=== PATIENT | female | born 1950 | race Caucasian/White ===

== ENCOUNTER 2017-06-27 10:35 | Outpatient (CLI) | payer MEDICARE ==
--- NOTE | 2017-06-27 12:36 | XRAY Report ---
TWO VIEW CHEST: 06/27/2017 CLINICAL INDICATION: Shortness of breath. FINDINGS: Frontal and lateral views of the chest demonstrate a normal cardiac silhouette. The lungs are clear. Old, healed rib fractures are incidentally noted. IMPRESSION: NO EVIDENCE OF ACUTE CARDIOPULMONARY DISEASE. JOB #: [id number] EXT JOB #:[id number]
== END 2017-06-27 10:36 | disposition home or self-care (01) ==
LOC: DI.S 10:35
PROVIDERS: ATTEND Physician Assistant
DX: R06.02 Shortness of breath (principal)
CPT/HCPCS: 71020

== ENCOUNTER 2018-03-07 10:11 | Outpatient (CLI) | payer MEDICARE ==
--- NOTE | 2018-03-09 11:03 | Mammography Report ---
Procedure Date: 03/07/2018 Accession Number: [id number] / [id number] Procedure: MGS - Screening Mammo Dig Bilat CPT Code: FULL RESULT: EXAM: Screening Mammo Dig Bilat DATE: 03/07/2018 10:30 AM CLINICAL HISTORY: 67-year-old with history of late childbearing for screening TECHNIQUE: Bilateral CC, laterally exaggerated CC, MLO views were obtained. COMPARISON: 03/29/2016, 06/13/2013, 05/09/2012, 03/02/2011 FINDINGS: The breasts demonstrate heterogeneously dense fibroglandular parenchyma bilaterally. Coarse and punctate, typically benign calcifications are present. No suspicious masses, clustered microcalcifications, or regions of architectural distortion are identified. IMPRESSION: Benign findings RECOMMENDATION: Routine annual screening unless otherwise clinically indicated. BIRADS CATEGORY 2: Benign findings STANDARD QUALIFYING STATEMENTS: 1. This examination was reviewed with the aid of Computer-Aided Detection (CAD). 2. A negative or benign imaging report should not delay biopsy if clinically suspicious findings are present. Consider surgical consultation if warrented. More than 5% of cancers are not identified by imaging. 3. Dense breasts may obscure an underlying neoplasm.
== END 2018-03-07 10:12 | disposition home or self-care (01) ==
LOC: DI.S 10:11
PROVIDERS: ATTEND Physician Assistant
DX: Z12.31 Encounter for screening mammogram for malignant neoplasm of breast (principal)
CPT/HCPCS: 77067

== ENCOUNTER 2020-01-25 11:48 | Emergency (ER) | payer MEDICARE ==
[2020-01-25 12:54] LABS: BASOPHILS % (AUTO) 0.7 %; HGB - HEMOGLOBIN 12.6 g/dL (12.0-16.0); LYMPHOCYTES % (AUTO) 4.9 %; MEAN CORPUSCULAR HEMOGLOBIN 31.7 pg (27.0-31.0); MEAN CORPUSCULAR HGB CONC 33.5 g/dL (32.0-36.0); MEAN CORPUSCULAR VOLUME 94.7 fL (81.0-99.0); MEAN PLATELET VOLUME 11.1 fL (7.9-10.8); MONOCYTES % (AUTO) 4.3 %; NEUTROPHILS % (AUTO) 87.7 %; PLT - PLATELET COUNT 120 10^3/uL (130-450); RED BLOOD COUNT 3.97 10^6/uL (4.20-5.40); RED CELL DISTRIBUTION WIDTH 13.8 % (12.0-15.0); WHITE BLOOD COUNT 21.1 x10^3/uL (4.8-10.8)
[2020-01-25 12:57] LABS: ABNORMAL LYMPHS % (MANUAL) 0 %
[2020-01-25 13:00] LABS: ALBUMIN 3.6 g/dL (3.2-5.5); ALBUMIN/GLOBULIN RATIO 1.2 (1.0-2.2); BILIRUBIN,TOTAL 0.7 mg/dL (0.2-1.0); CALCIUM 8.4 mg/dL (8.5-10.3); CREATININE 0.6 mg/dL (0.4-1.0); TOTAL PROTEIN 6.6 g/dL (6.7-8.2)
[2020-01-25 13:00] LABS: BILIRUBIN,URINE NEGATIVE (NEGATIVE); GLUCOSE, URINE (UA) NEGATIVE (NEGATIVE); KETONES,URINE (UA) NEGATIVE (NEGATIVE); LEUKOCYTE ESTERASE, URINE NEGATIVE (NEGATIVE); NITRITE,URINE NEGATIVE (NEGATIVE); OCCULT BLOOD,URINE TRACE-INTA (NEGATIVE); PH,URINE 6.5 PH (5.0-7.5); PROTEIN,URINE NEGATIVE (NEGATIVE); UROBILINOGEN,URINE 0.2 (NORMAL) E.U./dL (NORMAL)
[2020-01-25 13:01] LABS: CLARITY,URINE CLEAR (CLEAR)
[2020-01-25 13:21] LABS: BAND NEUTROPHILS % (MANUAL) 6 %; LYMPHOCYTES # (MANUAL) 1.5 10^3/uL (1.5-3.5); LYMPHOCYTES % (MANUAL) 7 %
[2020-01-25 13:24] LABS: DIFFERENTIAL COMMENT MANUAL DIFFERENTIAL; PLATELET ESTIMATE, MANUAL DECREASED (<130,000) (NORMAL); PLATELET MORPHOLOGY NORMAL APPEARANCE (NORMAL); RBC MORPHOLOGY (MULTIPLE) NORMAL APPEARANCE (NORMAL)
--- NOTE | 2020-01-25 13:58 | ED Physician Documentation ---
PD HPI NVD - Stated complaint Stated Complaint: FEVER,DIARRHEA - Chief complaint Chief Complaint: Fever - History obtained from History obtained from: Patient - History of Present Illness Timing - onset: How many days ago (6) Timing - duration: Days (6) Timing - details: Gradual onset, Still present Associated symptoms: Fever, Loss of appetite, Other (weakness) Contributing factors: Other (recent start of chemo) Improved by: Meds Similar symptoms before: Has not had sx before Recently seen: Other - Additonal information Additional information: 69-year-old female has recently been diagnosed with ER negative HER-2 positive breast cancer and she has been started on neoadjuvant chemotherapy. She has a port in place and she had her first round of chemo on 01/15/2020. At that time she was constipated she did take some MiraLAX and since that time she has had diarrhea multiple times during the day and night and she has a sore rectum. She is now developed a fever up to 101 and this is been variable. She does not have cough or congestion she does not have urinary symptoms. She has been drinking a lot of Gatorade. Review of Systems Constitutional: reports: Fever, Chills, Myalgias Eyes: denies: Decreased vision Ears: denies: Ear pain Nose: denies: Rhinorrhea / runny nose, Congestion Throat: denies: Sore throat Cardiac: denies: Chest pain / pressure, Palpitations Respiratory: denies: Dyspnea, Cough GI: reports: Nausea, Diarrhea. denies: Abdominal Pain, Vomiting : denies: Dysuria, Frequency Skin: denies: Rash Musculoskeletal: denies: Neck pain, Back pain, Extremity pain Neurologic: reports: Generalized weakness. denies: Focal weakness, Numbness PD PAST MEDICAL HISTORY - Past Medical History Past Medical History: Yes - Present Medications Home Medications: Ambulatory Orders Medication Instructions Recorded Confirmed Lidocaine/Prilocain 2.5% Cream 30 gm TOP DAILY PRN 01/08/20 01/08/20 [Emla 2.5% Cream] OLANZapine [Olanzapine] 5 mg PO QPM PRN 01/08/20 01/08/20 Ondansetron HCl [Zofran] 8 mg PO BID PRN 01/08/20 01/08/20 dexAMETHasone [Dexamethasone] 8 mg PO BID PRN 01/08/20 01/08/20 - Allergies Allergies/Adverse Reactions: Allergies Allergy/AdvReac Type Severity Reaction Status Date / Time epinephrine AdvReac Mild Unknown Verified 01/25/20 12:03 - Social History Does the pt smoke?: No Smoking Status: Never smoker Does the pt drink ETOH?: No Does the pt have substance abuse?: No - Immunizations Immunizations are current?: Yes PD ED PE NORMAL - Vitals Vital signs reviewed: Yes (tachy with a wide pulse pressure ) - General General: Alert and oriented X 3, No acute distress, Well developed/nourished - HEENT HEENT: Atraumatic, PERRL, EOMI - Neck Neck: Supple, no meningeal sign - Cardiac Cardiac: Other (Tachycardic rate with a 2 out of 6 holosystolic murmur at the sternal border.) - Respiratory Respiratory: No respiratory distress - Abdomen Abdomen: Soft, Non tender - Back Back: No CVA TTP, No spinal TTP - Derm Derm: Normal color, Warm and dry, No rash - Extremities Extremities: No deformity, No edema - Neuro Neuro: Alert and oriented X 3, analytical technician 2-12 intact, No motor deficit, No sensory deficit, Normal speech Eye Opening: Spontaneous Motor: Obeys Commands Verbal: Oriented GCS Score: 15 - Psych Psych: Normal mood, Normal affect Results - Vitals Vitals: Vital Signs - 24 hr 01/25/20 01/25/20 01/25/20 11:56 12:25 12:33 Temperature 36.9 C 36.9 C Heart Rate 102 H 102 H 100 Respiratory 18 18 16 Rate Blood Pressure 124/54 L 124/54 L 143/64 H O2 Saturation 96 96 97 01/25/20 01/25/20 01/25/20 13:03 13:30 14:00 Temperature Heart Rate 100 102 H 99 Respiratory 16 16 16 Rate Blood Pressure 140/62 H 110/73 121/66 O2 Saturation 98 100 98 01/25/20 14:30 Temperature Heart Rate 98 Respiratory 16 Rate Blood Pressure 120/68 O2 Saturation 100 Oxygen O2 Source Room air - Labs Labs: Laboratory Tests 01/25/20 01/25/20 01/25/20 12:30 12:30 12:30 WBC 21.1 H RBC 3.97 L Hgb 12.6 Hct 37.6 MCV 94.7 MCH 31.7 H MCHC 33.5 RDW 13.8 Plt Count 120 L MPV 11.1 H Neut # (Auto) Not Reportable Lymph # (Auto) Not Reportable Weld # (Auto) Not Reportable Eos # (Auto) Not Reportable Baso # (Auto) Not Reportable Absolute Nucleated RBC Not Reportable Total Counted 100 Band Neuts % (Manual) 6 Abnorm Lymph % (Manual) 0 Nucleated RBC % Not Reportable Neutrophils # (Manual) 19.6 H Lymphocytes # (Manual) 1.5 Monocytes # (Manual) 0.0 Eosinophils # (Manual) 0.0 Basophils # (Manual) 0.0 Differential Comment MANUAL DIFFERENTIAL WBC Morphology NORMAL APPEARANCE Platelet Estimate DECREASED (<130,000) Platelet Morphology NORMAL APPEARANCE RBC Morph Micro Appear NORMAL APPEARANCE Sodium 135 Potassium 3.4 L Chloride 99 L Carbon Dioxide 27 Anion Gap 9.0 BUN 5 L Creatinine 0.6 Estimated GFR (MDRD) 99 Glucose 111 H Lactic Acid 0.7 Calcium 8.4 L Total Bilirubin 0.7 AST 29 ALT 30 Alkaline Phosphatase 91 Total Protein 6.6 L Albumin 3.6 Globulin 3.0 Albumin/Globulin Ratio 1.2 Lipase 21 L Urine Color Urine Clarity Urine pH Ur Specific Chloe Urine Protein Urine Glucose (UA) Urine Ketones Urine Occult Blood Urine Nitrite Urine Bilirubin Urine Urobilinogen Ur Leukocyte Esterase Ur Microscopic Review Urine Culture Comments 01/25/20 12:53 WBC RBC Hgb Hct MCV MCH MCHC RDW Plt Count MPV Neut # (Auto) Lymph # (Auto) Weld # (Auto) Eos # (Auto) Baso # (Auto) Absolute Nucleated RBC Total Counted Band Neuts % (Manual) Abnorm Lymph % (Manual) Nucleated RBC % Neutrophils # (Manual) Lymphocytes # (Manual) Monocytes # (Manual) Eosinophils # (Manual) Basophils # (Manual) Differential Comment WBC Morphology Platelet Estimate Platelet Morphology RBC Morph Micro Appear Sodium Potassium Chloride Carbon Dioxide Anion Gap BUN Creatinine Estimated GFR (MDRD) Glucose Lactic Acid Calcium Total Bilirubin AST ALT Alkaline Phosphatase Total Protein Albumin Globulin Albumin/Globulin Ratio Lipase Urine Color YELLOW Urine Clarity CLEAR Urine pH 6.5 Ur Specific Chloe <=1.005 Urine Protein NEGATIVE Urine Glucose (UA) NEGATIVE Urine Ketones NEGATIVE Urine Occult Blood TRACE-INTA Urine Nitrite NEGATIVE Urine Bilirubin NEGATIVE Urine Urobilinogen 0.2 (NORMAL) Ur Leukocyte Esterase NEGATIVE Ur Microscopic Review NOT INDICATED Urine Culture Comments NOT INDICATED Procedures - IVC sono (time) 1345 Bedside IVC sono: IVC measures (cm) (1.74), IVC collapsed c insp (cm) (1.09), Euvolemia PD MEDICAL DECISION MAKING - ED course Complexity details: reviewed old records, reviewed results, re-evaluated patient, considered differential, d/w patient ED course: Patient 69-year-old female beginning a treatment regimen for breast cancer has developed diarrhea a known side effect of her regimen. The diarrhea is profuse and Dr. Dumont is consulted and the recommendation for treatment of it is Imodium on a regular basis. The patient has not been doing this. I will encourage that. She does have normal volume today. Electrolytes are without abnormality. Departure - Departure Disposition: Home, Self Care Clinical Impression: Diarrhea Qualifiers: Diarrhea type: unspecified type Qualified Code(s): R19.7 - Diarrhea, unspec ified Condition: Stable Instructions: ED Diet Vomiting Diarrhea Follow-Up: Arlene Velasquez PA [Primary Care Provider] - Comments: This diarrhea that you have is a known side effect of your chemotherapy regimen. The measure that has been required to help this is the use of Imodium on a re gular basis. The recommendation is to take 4 mg initially and then 2 mg every 4 hours or after diarrhea. Not to exceed 16 mg/day. (8 pills in one day is the maximum). Discharge Date/Time: 01/25/20 15:20
--- NOTE | 2020-01-25 14:28 | XRAY Report ---
Reason: chest pain Procedure Date: 01/25/2020 Accession Number: [id number] / [id number] Procedure: XR - Chest 1 View X-Ray CPT Code: 93884 Final Report FULL RESULT: EXAM: CHEST RADIOGRAPHY EXAM DATE: 01/25/2020 02:10 PM. CLINICAL HISTORY: Chest pain. Chest pain, fever, vomiting and treatments through Port-A-Cath placed 01/11/2020. COMPARISON: CHEST 2 VIEW PA/LAT 06/27/2017 10:50 AM. TECHNIQUE: 1 view. FINDINGS: Lungs/Pleura: Lungs are without consolidation. Elevation of the right hemidiaphragm. Negative for pleural fluid. Mediastinum: Heart size is normal. Trachea is midline. Other: Right Port-A-Cath with tip at the lower SVC. Remote healed fractures right posterolateral seventh and eighth ribs. IMPRESSION: Negative for pneumonic infiltrate. RADIA
[2020-01-25 14:31] VITALS: BP 120/68
== END 2020-01-25 15:20 | disposition home or self-care (01) ==
LOC: ED 11:48
DX: K52.1 Toxic gastroenteritis and colitis (principal); T45.1X5A Adverse effect of antineoplastic and immunosuppressive drugs, initial encounter; C50.919 Malignant neoplasm of unspecified site of unspecified female breast; Z17.1 Estrogen receptor negative status [ER-]; R00.0 Tachycardia, unspecified; R01.1 Cardiac murmur, unspecified
CPT/HCPCS: 36415; 71045; 80053; 81001; 81003; 83605; 83690; 85025; 87040; 87086; 96374; 99284

== ENCOUNTER 2020-01-28 20:45 | Outpatient (CLI) | payer MEDICARE | END 2020-01-28 20:46 | disposition home or self-care (01) | LOC: COV 20:45 | PROVIDERS: ATTEND Family Medicine | DX: R50.9 Fever, unspecified (principal); R19.7 Diarrhea, unspecified | CPT/HCPCS: 81599 ==

== ENCOUNTER 2020-04-14 08:58 | Emergency (ER) | payer MEDICARE ==
[2020-04-14] MEDS ORDERED: SODIUM CHLORIDE 0.9% 1,000 ML IV STA ×2 (09:04→10:10)
--- NOTE | 2020-04-14 09:10 | ED Physician Documentation ---
PD HPI SYNCOPE - Stated complaint Stated Complaint: SYNCOPE - Chief complaint Chief Complaint: Neuro - History obtained from History obtained from: Patient, EMS - History of Present Illness Witnessed: Witnessed Timing - onset: Today Duration: Seconds Injury occurred: Fell. No: Head injury, Neck injury, Bit tongue Pain level max: 0 Pain level now: 0 - Additional information Additional information: 69-year-old female currently undergoing chemotherapy for breast cancer states that she was feeling lightheaded today. She states that she was scheduled for IV fluids today at the [facility] clinic. She went and had a bowel movement on the michael let, after that she felt lightheaded, dizzy and had a syncopal event. No injuries. Did not strike her head. No vomiting. No chest pain. No palpitations. Feels better after IV fluids with EMS. She was reportedly hypotensive upon arrival, 60/40. Review of Systems Ten Systems: 10 systems reviewed and negative Constitutional: denies: Fever, Chills Respiratory: denies: Cough GI: denies: Nausea, Vomiting, Diarrhea Skin: denies: Rash Musculoskeletal: denies: Neck pain, Back pain Neurologic: reports: Generalized weakness. denies: Focal weakness, Numbness, Confused, Altered mental status PD PAST MEDICAL HISTORY - Past Medical History Past Medical History: Yes Other Past Medical History: breast cancer - Present Medications Home Medications: Ambulatory Orders Medication Instructions Recorded Confirmed Lidocaine/Prilocain 2.5% Cream 30 gm TOP DAILY PRN 01/08/20 04/07/20 [Emla 2.5% Cream] OLANZapine [Olanzapine] 5 mg PO QPM PRN 01/08/20 04/07/20 Ondansetron HCl [Zofran] 8 mg PO BID PRN 01/08/20 04/07/20 dexAMETHasone [Dexamethasone] 8 mg PO BID PRN 01/08/20 04/07/20 Diphenoxylate/Atropine [Lomotil] 2 each PO ONCE 02/25/20 04/07/20 Calcium Citrate/Vitamin D3 PO DAILY 04/14/20 [Calcium Citrate-Vit D3 Tablet] Lutein/Zeaxanthin [Ocuvite Blue 25 mg PO DAILY 04/14/20 04/14/20 Light 25-5 mg Sfg] Methylsulfonylmethane [MSM] 1,000 mg PO DAILY 04/14/20 04/14/20 - Allergies Allergies/Adverse Reactions: Allergies Allergy/AdvReac Type Severity Reaction Status Date / Time epinephrine AdvReac Mild Unknown Verified 04/07/20 09:50 - Living Situation Living Situation: reports: With family Living Arrangement: reports: At home - Social History Does the pt smoke?: No Smoking Status: Never smoker Does the pt drink ETOH?: No Does the pt have substance abuse?: No - Immunizations Immunizations are current?: Yes PD ED PE NORMAL - Vitals Vital signs reviewed: Yes - General General: Alert and oriented X 3, No acute distress - HEENT HEENT: Atraumatic, PERRL, Other (Dry lips and tongue) - Neck Neck: Supple, no meningeal sign, No bony TTP - Cardiac Cardiac: RRR, Strong equal pulses - Respiratory Respiratory: No respiratory distress, Clear bilaterally - Abdomen Abdomen: Soft, Non tender, Non distended - Back Back: No spinal TTP - Derm Derm: Warm and dry - Extremities Extremities: No deformity, No tenderness to palpate - Neuro Neuro: Alert and oriented X 3 - Psych Psych: Normal mood, Normal affect Results - Vitals Vitals: Vital Signs - 24 hr 04/14/20 04/14/20 04/14/20 09:01 10:07 11:35 Temperature 36.9 C 36.6 C Heart Rate 84 84 85 Respiratory 17 18 17 Rate Blood Pressure 125/63 119/65 126/72 O2 Saturation 97 99 96 Oxygen O2 Source Room air - EKG (time done) 0902 Rate: Rate (enter#) (84) Rhythm: NSR [place]: Anterior hemiblock (LAFB) Intervals: Normal MO, RBBB QRS: LVH Compare to prior EKG: Old EKG unavailable - Labs Labs: Laboratory Tests 04/14/20 04/14/20 04/14/20 09:18 09:18 09:18 WBC 6.9 RBC 3.37 L Hgb 10.8 L Hct 34.1 L MCV 101.2 H MCH 32.0 H MCHC 31.7 L RDW 16.4 H Plt Count 98 L MPV 11.0 H Neut # (Auto) 5.0 Lymph # (Auto) 0.7 L Humphreys # (Auto) 0.9 Eos # (Auto) 0.0 Baso # (Auto) 0.0 Absolute Nucleated RBC 0.00 Nucleated RBC % 0.0 Manual Slide Review Indicated RBC Morph Micro Appear 2+ ANISOCYTOSIS Sodium 136 Potassium 3.8 Chloride 99 L Carbon Dioxide 28 Anion Gap 9.0 BUN 13 Creatinine 0.7 Estimated GFR (MDRD) 83 L Glucose 156 H Calcium 8.9 Phosphorus 2.9 Magnesium 1.5 L Total Bilirubin 0.3 AST 22 ALT 21 Alkaline Phosphatase 70 Troponin I High Sens < 2.3 L Total Protein 5.9 L Albumin 3.3 Globulin 2.6 Albumin/Globulin Ratio 1.3 Lipase 21 L Urine Color Urine Clarity Urine pH Ur Specific [place] Urine Protein Urine Glucose (UA) Urine Ketones Urine Occult Blood Urine Nitrite Urine Bilirubin Urine Urobilinogen Ur Leukocyte Esterase Ur Microscopic Review Urine Culture Comments 04/14/20 10:55 WBC RBC Hgb Hct MCV MCH MCHC RDW Plt Count MPV Neut # (Auto) Lymph # (Auto) Humphreys # (Auto) Eos # (Auto) Baso # (Auto) Absolute Nucleated RBC Nucleated RBC % Manual Slide Review RBC Morph Micro Appear Sodium Potassium Chloride Carbon Dioxide Anion Gap BUN Creatinine Estimated GFR (MDRD) Glucose Calcium Phosphorus Magnesium Total Bilirubin AST ALT Alkaline Phosphatase Troponin I High Sens Total Protein Albumin Globulin Albumin/Globulin Ratio Lipase Urine Color YELLOW Urine Clarity CLEAR Urine pH 7.0 Ur Specific [place] <=1.005 Urine Protein NEGATIVE Urine Glucose (UA) NEGATIVE Urine Ketones NEGATIVE Urine Occult Blood NEGATIVE Urine Nitrite NEGATIVE Urine Bilirubin NEGATIVE Urine Urobilinogen 0.2 (NORMAL) Ur Leukocyte Esterase NEGATIVE Ur Microscopic Review NOT INDICATED Urine Culture Comments NOT INDICATED - Rads (name of study) cxr Radiology: Prelim report reviewed, EMP read contemporaneously PD MEDICAL DECISION MAKING - ED course Complexity details: reviewed results, re-evaluated patient, considered differential, d/w patient ED course: 86-year-old female with significant dehydration. Likely related to her breast cancer and ongoing chemotherapy. Symptoms resolved with IV fluids. Ambulating without difficulty. Hypotension resolved. No other acute abnormalities. We will have her follow-up with her doctor for further care. Patient and family counseled regarding signs and symptoms for which I believe and urgent re- evaluation would be necessary. Patient with good understanding of and agreement to plan and is comfortable going home at this time This document was made in part using voice recognition software. While efforts are made to proofread this document, sound alike and grammatical errors may occur. Departure - Departure Disposition: 01 Home, Self Care Clinical Impression: Dehydration, Vasovagal syncope Condition: Good Instructions: ED Dehydration, ED Syncope Vasovagal Follow-Up: Jyothi Mello ARNP [Primary Care Provider] - Within 1 week Comments: Drink plenty of fluids at home. You can also try oral rehydrating solution. You can find recipes for this online. Return if you worsen Discharge Date/Time: 04/14/20 12:06
[2020-04-14 09:24] LABS: BASOPHILS % (AUTO) 0.1 %; HGB - HEMOGLOBIN 10.8 g/dL (12.0-16.0); LYMPHOCYTES # (AUTO) 0.7 10^3/uL (1.5-3.5); LYMPHOCYTES % (AUTO) 10.6 %; MEAN CORPUSCULAR HGB CONC 31.7 g/dL (32.0-36.0); MEAN CORPUSCULAR VOLUME 101.2 fL (81.0-99.0); MONOCYTES # (AUTO) 0.9 10^3/uL (0.0-1.0); MONOCYTES % (AUTO) 12.7 %; NEUTROPHILS % (AUTO) 71.8 %; PLT - PLATELET COUNT 98 10^3/uL (130-450); RED BLOOD COUNT 3.37 10^6/uL (4.20-5.40); RED CELL DISTRIBUTION WIDTH 16.4 % (12.0-15.0); WHITE BLOOD COUNT 6.9 x10^3/uL (4.8-10.8)
--- NOTE | 2020-04-14 09:25 | XRAY Report ---
PROCEDURE: Chest 1 View X-Ray INDICATIONS: Chest Pain TECHNIQUE: One view of the chest was acquired. COMPARISON: 01/25/2020 FINDINGS: Surgical changes and devices: Right IJ Mediport in stable position.. Lungs and pleura: No pleural effusions or pneumothorax. Lungs are clear. Mediastinum: Mediastinal contours appear stable. The thoracic aorta is tortuous.. Heart size is nor mal. Bones and chest wall: There are healing right rib fractures 7, 8, and 9. No suspicious bony lesions. Overlying soft tissues appear unremarkable. IMPRESSION: 1. No acute cardiopulmonary disease. 2. Stable heart and lungs. 3. Further healing right-sided rib fractures. Reviewed by: Millie Pierre MD on 04/14/2020 8:23 AM CRISTOPHER Approved by: Millie Pierre MD on 04/14/2020 8:23 AM CRISTOPHER Station ID: [id number]
[2020-04-14 09:41] LABS: ALBUMIN 3.3 g/dL (3.2-5.5); ALBUMIN/GLOBULIN RATIO 1.3 (1.0-2.2); BILIRUBIN,TOTAL 0.3 mg/dL (0.2-1.0); CALCIUM 8.9 mg/dL (8.5-10.3); CREATININE 0.7 mg/dL (0.4-1.0); MAGNESIUM 1.5 mg/dL (1.7-2.8); PHOSPHORUS 2.9 mg/dL (2.5-4.6); TOTAL PROTEIN 5.9 g/dL (6.7-8.2)
[2020-04-14 09:44] LABS: RBC MORPHOLOGY (MULTIPLE) 2+ ANISOCYTOSIS (NORMAL)
[2020-04-14 11:15] LABS: BILIRUBIN,URINE NEGATIVE (NEGATIVE); GLUCOSE, URINE (UA) NEGATIVE (NEGATIVE); KETONES,URINE (UA) NEGATIVE (NEGATIVE); LEUKOCYTE ESTERASE, URINE NEGATIVE (NEGATIVE); NITRITE,URINE NEGATIVE (NEGATIVE); OCCULT BLOOD,URINE NEGATIVE (NEGATIVE); PROTEIN,URINE NEGATIVE (NEGATIVE); UROBILINOGEN,URINE 0.2 (NORMAL) E.U./dL (NORMAL)
[2020-04-14 11:16] LABS: CLARITY,URINE CLEAR (CLEAR)
[2020-04-14 11:36] VITALS: BP 126/72
== END 2020-04-14 12:06 | disposition home or self-care (01) ==
LOC: EDUNIT# → ED 08:58
DX: E86.0 Dehydration (principal); R55 Syncope and collapse; I95.9 Hypotension, unspecified; I45.2 Bifascicular block; C50.919 Malignant neoplasm of unspecified site of unspecified female breast; Z92.21 Personal history of antineoplastic chemotherapy
CPT/HCPCS: 36415; 71045; 80053; 81001; 81003; 83690; 83735; 84100; 84484; 85025; 87086; 93005; 96360; 96361; 99284

== ENCOUNTER 2020-06-20 09:13 | Outpatient (CLI) | payer MEDICARE ==
--- NOTE | 2020-06-20 12:33 | Nuclear Medicine Report ---
PROCEDURE: MUGA Cardiac Imaging INDICATIONS: LT BREAST CA RADIOPHARMACEUTICAL: 27.3 mCi Tc-99m labeled autologous red cells IV. TECHNIQUE: After intravenous administration of autologous labeled WBC, FRISIAN views of the chest were obtained. A region of interest was drawn around the left ventricle to calculate left ventricle ejection fraction. COMPARISON: None available. FINDINGS: The heart and great vessels are of normal size and configuration. The left ventricle contracts celina lly, with left ventricle ejection fraction of 59%. Normal ejection fractions for this study are abov e 55%. A drop from baseline ejection fraction of greater than 10 percentage points or to below 45% o n follow-up studies may be considered significant. IMPRESSION: Normal left ventricular ejection fraction of 59%. Reviewed by: Jayashree Brice MD, PhD on 06/20/2020 12:32 PM PDT Approved by: Jayashree Brice MD, PhD on 06/20/2020 12:32 PM PDT Station ID: [id number]
== END 2020-06-20 09:14 | disposition home or self-care (01) ==
LOC: DI 09:13
PROVIDERS: ATTEND Internal Medicine Hematology & Oncology
DX: C50.912 Malignant neoplasm of unspecified site of left female breast (principal); Z79.899 Other long term (current) drug therapy
CPT/HCPCS: 78803; A9512; A9538

== ENCOUNTER 2020-11-07 10:14 | Outpatient (CLI) | payer MEDICARE | END 2020-11-07 10:15 | disposition home or self-care (01) | LOC: DI 10:14 | PROVIDERS: ATTEND Internal Medicine Hematology & Oncology | DX: C50.912 Malignant neoplasm of unspecified site of left female breast (principal); I77.810 Thoracic aortic ectasia | CPT/HCPCS: 93306 ==

== ENCOUNTER 2021-03-31 10:19 | Outpatient (CLI) | payer MEDICARE | END 2021-03-31 10:20 | disposition home or self-care (01) | LOC: DI 10:19 | PROVIDERS: ATTEND Physician Assistant | DX: I49.3 Ventricular premature depolarization (principal); I51.7 Cardiomegaly; I77.810 Thoracic aortic ectasia | CPT/HCPCS: 93306 ==

== ENCOUNTER 2021-05-04 10:07 | Outpatient (CLI) | payer MEDICARE ==
[2021-05-04] MEDS ORDERED: GADOBUTROL 7.5 MMOL/7.5 ML VIAL ONE (10:42)
--- NOTE | 2021-05-04 13:07 | MRI Report ---
PROCEDURE: Brain W/WO INDICATIONS: BREAST CA CONTRAST: IV CONTRAST: Gadavist ml: 6.7 TECHNIQUE: Noncontrast axial T1 spin echo, axial T2 fast spin echo, sagittal and axial FLAIR, coronal T2 fast sp in echo, axial gradient echo, axial diffusion and ADC through the brain. After the administration of contrast, axial and coronal T1 spin echo with fat saturation through the brain. COMPARISON: None. FINDINGS: Image quality: Excellent. CSF spaces: Basal cisterns are patent. No extra-axial fluid collections. Ventricles are normal in size and shape. Brain: No midline shift. No intracranial bleeds or masses. No abnormal intracranial enhancement. There is mild cerebral volume loss for age. There is minimal periventricular white matter chronic sm all vessel ischemic change. The brainstem appears normal. No GRE weighted abnormalities in the brai n parenchyma. Diffusion-weighted images demonstrate no acute ischemic insults. No chronic ischemic i nsults. Normal intravascular flow voids are present. Dural sinuses demonstrate normal postcontrast e nhancement. Skull and face: Calvarial marrow is normal in signal. Orbits appear normal. Sinuses: Mucosal thickening in the maxillary sinuses bilaterally. Mastoids appear clear. IMPRESSION: 1. No acute intracranial disease process. 2. No evidence of metastatic disease. 3. No abnormal intracranial mass or mass effect. 4. No suspicious postcontrast enhancement. Reviewed by: Jayashree Brice MD, PhD on 05/04/2021 1:06 PM PDT Approved by: Jayashree Brice MD, PhD on 05/04/2021 1:06 PM PDT Station ID: [id number]
[2021-05-04] MEDS ORDERED: GADOBUTROL 7.5 MMOL/7.5 ML VIAL IVP ONE (15:42)
== END 2021-05-04 10:08 | disposition home or self-care (01) ==
LOC: DI 10:07
PROVIDERS: ATTEND Internal Medicine Hematology & Oncology
DX: C50.812 Malignant neoplasm of overlapping sites of left female breast (principal); C77.0 Secondary and unspecified malignant neoplasm of lymph nodes of head, face and neck
CPT/HCPCS: 70553; A9585

== ENCOUNTER 2023-01-17 15:12 | Outpatient (CLI) | payer MEDICARE, OTHER ==
--- NOTE | 2023-01-17 16:29 | DEXA Report ---
PROCEDURE: Dexa Spine and/or Hip INDICATIONS: POST MENOPAUSAL TECHNIQUE: Dual energy x-ray absorptiometry (DXA) was performed on a [employer]. System. Regions measur ed are the AP Spine, femoral neck, and if needed forearm. COMPARISON: None FINDINGS: Lumbar Spine: Bone Mineral Density 1.2 g/cm/cm,T score 0.5. Normal bone density Left Femoral Neck: Bone Mineral Density 0.97 g/cm/cm, T score -0.3. Normal bone density Impression: Normal lumbar spine and left femoral neck bone density. Patients with diagnosis of osteoporosis or osteopenia should have regular bone mineral density assess ment. For those eligible for Medicare, routine testing is allowed once every 2 years. Testing frequ ency can be increased for patients who have rapidly progressing disease or for those who are receivin g medical therapy to restore bone mass. Reviewed by: Mel Collazo MD on 01/17/2023 4:27 PM PDT Approved by: Mel Collazo MD on 01/17/2023 4:27 PM PDT Station ID: [id number]
== END 2023-01-17 15:13 | disposition home or self-care (01) ==
LOC: DI 15:12
PROVIDERS: ATTEND Nurse Practitioner Family
DX: Z78.0 Asymptomatic menopausal state (principal)

== ENCOUNTER 2023-02-02 11:09 | Outpatient (CLI) | payer MEDICARE, OTHER | END 2023-02-02 11:10 | disposition home or self-care (01) | LOC: LAB 11:09 | PROVIDERS: ATTEND Nurse Practitioner Family | DX: I71.21 Aneurysm of the ascending aorta, without rupture (principal) ==

== ENCOUNTER 2023-02-02 11:10 | Outpatient (CLI) | payer MEDICARE, OTHER ==
[2023-02-02 11:32] LABS: ALBUMIN 4.2 g/dL (3.2-5.5); ALBUMIN/GLOBULIN RATIO 1.4 (1.0-2.2); BILIRUBIN,TOTAL 0.7 mg/dL (0.2-1.0); CALCIUM 9.9 mg/dL (8.5-10.3); CREATININE 0.7 mg/dL (0.4-1.0); POTASSIUM 4.2 mmol/L (3.5-5.0); TOTAL PROTEIN 7.2 g/dL (6.7-8.2)
[2023-02-02] MEDS ORDERED: iohexoL-300 100 ML VIAL ONE (11:53)
--- NOTE | 2023-02-02 14:20 | CT Report ---
PROCEDURE: ANGIO CHEST W/WO INDICATIONS: AAA CONTRAST: 80ml Omnipaque 300 TECHNIQUE: After the administration of intravenous contrast, 2 mm axial images were acquired from the pulmonary apices to the posterior costophrenic angles during the arterial phase. In addition, 1 mm lung kernel and 5 mm soft tissue kernel reconstructions were performed. 3-dimensional coronal oblique maximum int ensity projection (MIP) reformats, 8 mm axial MIP, and 5 mm coronal and sagittal MPR reformats were t hen performed through the thorax. For radiation dose reduction, the following was used: automated exp osure control, adjustment of mA and/or kV according to patient size. COMPARISON: None FINDINGS: Image quality: Excellent. Aorta and its attachments: Marked dilatation of the ascending aorta, which measures 6.4 cm in maximum diameter. Classic three-vessel arch anatomy. Great vessel origins are widely patent. They are nonane urysmal. The transverse arch is aneurysmally dilated, measuring approximately 4 cm in diameter. The d escending thoracic aorta is aneurysmally dilated as well, measuring approximately 4.9 cm. The suprace liac abdominal aorta measures 3.8 x 3.7 cm. The celiac and SMA are patent, as are the bilateral renal arteries. At the level of the SMA, the abdominal aorta measures 3.3 cm in diameter. Pulmonary arteries: Normal caliber. No pulmonary arterial clot. Lungs and pleura: No consolidation. No pleural effusions. No pneumothorax. No suspicious pulmonary n odules which require follow up. Anterior left upper lobe pulmonary fibrosis immediately subjacent to the left breast, likely representing postradiation changes. Mediastinum: Heart size is normal. No pericardial effusions. No mediastinal adenopathy by size criter ia. Chest wall and lower neck: Thyroid is unremarkable. No axillary or supraclavicular adenopathy by size . Bilateral breast reconstruction surgery. Bones: No aggressive osseous abnormality. Upper Abdomen: Unremarkable. IMPRESSION: 1. 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 2. Bilateral breast reconstruction surgery 3. Left upper lobe focal pulmonary fibrosis, consistent with postradiation change. Reviewed by: Dayne Alcazar MD on 02/02/2023 2:18 PM PDT Approved by: Dayne Alcazar MD on 02/02/2023 2:18 PM PDT Station ID: [id number]
[2023-02-02] MEDS ORDERED: iohexoL-300 100 ML VIAL IVP ONE (15:14)
== END 2023-02-02 11:11 | disposition home or self-care (01) ==
LOC: DI 11:10
PROVIDERS: ATTEND Nurse Practitioner Family
DX: I71.22 Aneurysm of the aortic arch, without rupture (principal); I71.9 Aortic aneurysm of unspecified site, without rupture; J84.10 Pulmonary fibrosis, unspecified; I71.21 Aneurysm of the ascending aorta, without rupture
CPT/HCPCS: 36415; 71275; 80053; Q9967

== ENCOUNTER 2023-05-24 14:27 | Outpatient (CLI) | payer MEDICARE, OTHER ==
--- NOTE | 2023-05-24 20:24 | XRAY Report ---
PROCEDURE: Chest 2 View X-Ray INDICATIONS: DYSPNEA ON EXERTION TECHNIQUE: 2 views of the chest were obtained. COMPARISON: None. FINDINGS: Surgical changes and devices: Midline sternal wires Lungs and pleura: Blunting of both costophrenic angles present appears obscuration left hemidiaphrag m. Multiple surgical clips in the left breast and axilla. Mediastinum: Mediastinal contours appear normal. Heart size is enlarged. Bones and chest wall: Old healed right-sided rib fractures IMPRESSION: Bilateral pleural effusions with atelectasis and or infiltrate, left greater than right Cardiomegaly Reviewed by: Josue Holcomb MD on 05/24/2023 7:23 PM CRISTOPHER Approved by: Josue Holcomb MD on 05/24/2023 7:23 PM [facility] Station ID: [id number]
== END 2023-05-24 14:28 | disposition home or self-care (01) ==
LOC: DI.S 14:27
PROVIDERS: ATTEND Nurse Practitioner Family
DX: R06.09 Other forms of dyspnea (principal); J90 Pleural effusion, not elsewhere classified; I51.7 Cardiomegaly

== ENCOUNTER 2023-07-15 12:45 | Outpatient (CLI) | payer MEDICARE, OTHER ==
[2023-07-15 13:19] LABS: ALBUMIN/GLOBULIN RATIO 1.2 (1.0-2.2); ALKALINE PHOSPHATASE 78 IU/L (42-121); ALT ALANINE AMINOTRANSFERASE 15 IU/L (10-60); AST ASPARTATE AMINOTRANSFERASE 19 IU/L (10-42); BILIRUBIN,TOTAL 0.4 mg/dL (0.2-1.0); BUN - BLOOD UREA NITROGEN 13 mg/dL (6-20); CALCIUM 10.2 mg/dL (8.5-10.3); CARBON DIOXIDE - CO2 34 mmol/L (21-32); CHLORIDE 101 mmol/L (101-111); CHOL/HDL RATIO 2.7 (<4.4); CHOLESTEROL 154 mg/dL; CREATININE 0.7 mg/dL (0.6-1.3); GFR - MDRD 82 (>89); GLUCOSE 113 mg/dL (74-104); HDL CHOLESTEROL 58 mg/dL; LDL CHOLESTEROL,CALCULATED 70 mg/dL; LDL/HDL RATIO 1.2 (<4.4); POTASSIUM 4.3 mmol/L (3.5-4.5); SODIUM 138 mmol/L (135-145); TOTAL PROTEIN 7.4 g/dL (6.4-8.9); TRIGLYCERIDES 132 mg/dL (48-352); VLDL CHOLESTEROL 26 mg/dL
== END 2023-07-15 12:46 | disposition home or self-care (01) ==
LOC: LAB 12:45
PROVIDERS: ATTEND Nurse Practitioner Family
DX: I71.9 Aortic aneurysm of unspecified site, without rupture (principal); E78.5 Hyperlipidemia, unspecified
CPT/HCPCS: 36415; 80053; 80061; 83721

== ENCOUNTER 2024-04-25 18:51 | Outpatient (CLI) | payer MEDICARE | END 2024-04-25 23:59 | disposition critical access hospital (66) | LOC: EMS 18:51 | DX: R55 Syncope and collapse (principal) | CPT/HCPCS: A0425; A0427 ==

== ENCOUNTER 2024-04-25 19:24 | Emergency (ER) | payer MEDICARE, OTHER ==
[2024-04-25 20:03] LABS: BASOPHILS % (AUTO) 0.4 %; EOSINOPHILS # (AUTO) 0.1 10^3/uL (0.0-0.7); EOSINOPHILS % (AUTO) 1.7 %; HGB - HEMOGLOBIN 13.2 g/dL (12.0-16.0); LYMPHOCYTES # (AUTO) 1.2 10^3/uL (1.5-3.5); LYMPHOCYTES % (AUTO) 15.7 %; MEAN CORPUSCULAR VOLUME 96.9 fL (81.0-99.0); MEAN PLATELET VOLUME 9.5 fL (7.9-10.8); MONOCYTES # (AUTO) 0.6 10^3/uL (0.0-1.0); MONOCYTES % (AUTO) 8.5 %; NEUTROPHILS # (AUTO) 5.5 10^3/uL (1.5-6.6); NEUTROPHILS % (AUTO) 73.4 %; PLT - PLATELET COUNT 153 10^3/uL (130-450); RED BLOOD COUNT 4.13 10^6/uL (4.20-5.40); RED CELL DISTRIBUTION WIDTH 13.7 % (12.0-15.0); WHITE BLOOD COUNT 7.5 x10^3/uL (4.8-10.8)
[2024-04-25 20:19] LABS: ALBUMIN 3.9 g/dL (3.2-5.5); ALBUMIN/GLOBULIN RATIO 1.3 (1.0-2.2); BILIRUBIN,TOTAL 0.5 mg/dL (0.2-1.0); CALCIUM 9.6 mg/dL (8.5-10.3); CREATININE 0.7 mg/dL (0.6-1.3); MAGNESIUM 1.7 mg/dL (1.7-2.3); POTASSIUM 3.4 mmol/L (3.5-4.5); TOTAL PROTEIN 6.8 g/dL (6.4-8.9)
[2024-04-25 20:24] LABS: TROPONIN I HIGH SENSITIVITY 5.4 ng/L (2.3-14.8)
--- NOTE | 2024-04-25 20:43 | ED Physician Documentation ---
History of Present Illness - Stated complaint Stated Complaint: SYNCOPE - Chief complaint Chief Complaint: Neuro - History obtained from History obtained from: Patient, Family () - Additonal information Additional information: Patient is a 73-year-old female presenting to the emergency department after syncopal episode while at a restaurant. Patient notes she did not eat all day today and when she went out for dinner she had a lacey. She notes that she became very lightheaded and had to put her head down and lost consciousness for few minutes. Patient was arousable shortly after but did have an episode of incontinence. witnessed the event denies any seizure-like activity. Patient did not bite her tongue. She did not fall or hit her head. Patient is feeling significantly better now she received IV fluids and EMS truck. On EMS arrival patient was notably hypotensive with SBP in 78. Patient has history of breast cancer with history of mastectomy and history of vasovagal syncope. She notes symptoms feel similar to previous syncopal episodes in the past. PD PAST MEDICAL HISTORY - Past Medical History SEO STRATEGIST: Breast cancer - Past Surgical History Past Surgical History: Yes HEENT: Cataracts Derm: Skin cancer surgery - Present Medications Home Medications: Ambulatory Orders Medication Instructions Recorded Confirmed Apple Cider Vinegar 1 applic PO DAILY PRN 07/14/20 11/22/22 Ascorbic Acid [Vitamin C with Ginny 1 tab PO DAILY 07/14/20 11/22/22 Hips] Bee Propolis Powder 09/19 0.125 tsp PO DAILY 07/14/20 11/22/22 Boitin B 7 - 5,000 mcg PO DAILY 07/14/20 11/22/22 Calcium Carbonate/Vitamin D3 2 tab PO DAILY 07/14/20 11/22/22 [Calcium 600 mg-Vit D3 10Mcg Tb] Evening [place] Oil 1,000 mg PO DAILY 07/14/20 11/22/22 Folic Acid/Vit B Complex and C 1 tab PO DAILY 07/14/20 11/22/22 [Eql Super B Complex Tablet] K-2,Vit C, D3 1 tab PO DAILY 07/14/20 11/22/22 Lactobacillus Acidophilus 1 cap PO DAILY 07/14/20 11/22/22 [Acidophilus] Luten With Zeaxanthin 1 cap PO DAILY 07/14/20 11/22/22 Methyl Sulfonyl Methane 1,000 mg PO DAILY 07/14/20 11/22/22 Multivitamin W/Minerals [Theragran 1 tab PO DAILY 07/14/20 11/22/22 M] - Allergies Allergies/Adverse Reactions: Allergies Allergy/AdvReac Type Severity Reaction Status Date / Time diphenhydramine AdvReac Mild sleepy Verified 04/25/24 19:41 [From Benadryl] epinephrine AdvReac Mild Unknown Verified 04/25/24 19:41 - Social History Does the pt smoke?: No Smoking Status: Never smoker Does the pt drink ETOH?: No Does the pt have substance abuse?: No - Immunizations Immunizations are current?: Yes PD ED PE NORMAL - Vitals Vital signs reviewed: Yes - General General: Alert and oriented X 3 - HEENT HEENT: Atraumatic - Neck Neck: Supple, no meningeal sign - Cardiac Cardiac: RRR, No murmur, No gallop, No rub - Respiratory Respiratory: No respiratory distress, Clear bilaterally - Abdomen Abdomen: Normal bowel sounds - Female Female : Deferred - Rectal Rectal: Deferred - Back Back: No CVA TTP - Derm Derm: Normal color, No rash - Extremities Extremities: No deformity, No tenderness to palpate - Neuro Neuro: Alert and oriented X 3, 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 [id number] test intact.) Eye Opening: Spontaneous Motor: Obeys Commands Verbal: Oriented GCS Score: 15 - Psych Psych: Normal mood, Normal affect Results - Vitals Vitals: Vital Signs - 24 hr 04/25/24 19:33 Temperature 36.6 C Heart Rate 61 Respiratory 18 Rate Blood Pressure 125/60 O2 Saturation 100 Oxygen O2 Source Room air - Labs Labs: Laboratory Tests 04/25/24 04/25/24 19:55 19:55 WBC 7.5 RBC 4.13 L Hgb 13.2 Hct 40.0 MCV 96.9 MCH 32.0 H MCHC 33.0 RDW 13.7 Plt Count 153 MPV 9.5 Neut # (Auto) 5.5 Lymph # (Auto) 1.2 L Leon # (Auto) 0.6 Eos # (Auto) 0.1 Baso # (Auto) 0.0 Absolute Nucleated RBC 0.00 Nucleated RBC % 0.0 Sodium 138 Potassium 3.4 L Chloride 102 Carbon Dioxide 29 Anion Gap 7.0 BUN 19 Creatinine 0.7 Estimated GFR (MDRD) 82 L Glucose 108 H Calcium 9.6 Magnesium 1.7 Total Bilirubin 0.5 AST 21 ALT 12 Alkaline Phosphatase 42 Troponin I High Sens 5.4 Total Protein 6.8 Albumin 3.9 Globulin 2.9 Albumin/Globulin Ratio 1.3 PD Medical Decision Making - ED course Complexity details: reviewed old records, reviewed results Departure - Departure Disposition: Home, Self Care Clinical Impression: Syncopal episodes, Vasovagal episode, Dehydration Condition: Good Instructions: ED Dehydration, ED Syncope Vasovagal Comments: You were seen here in the emergency department you were offered further evaluation with x-ray and further fluids and further evaluation in the ED however given your improvement in symptoms you wish to go home. Your vitals and labs were reassuring here in the emergency department you should follow-up with your PCP for reevaluation by the end of the week to ensure resolution of symptoms return with any chest pain shortness of breath dizziness lightheadedness or other syncopal symptoms Forms: PCP List
[2024-04-25 21:02] VITALS: BP 131/78; O2SAT 96
== END 2024-04-25 21:08 | disposition home or self-care (01) ==
LOC: EDBD → EDUNIT# → ED 19:24
DX: R55 Syncope and collapse (principal); E86.0 Dehydration; I45.10 Unspecified right bundle-branch block; I51.7 Cardiomegaly; Z79.899 Other long term (current) drug therapy
CPT/HCPCS: 36415; 80053; 83735; 84484; 85025; 93005; 99283